=== PATIENT | female | born 1945 | race Caucasian/White ===

== ENCOUNTER 2016-12-09 14:48 | Inpatient (IN) | payer MEDICARE, OTHER ==
[2016-12-09] VITALS: BP 177/67
[~2016-12-09] VITALS: Ht 152.4 cm; Wt 90.9 kg
[2016-12-09 15:27] LABS: BASOPHILS 0.4 % (0.0-2.0); EOSINOPHILS 5.4 % (0-7); HEMATOCRIT 44.2 % (36.0-48.0); HEMOGLOBIN 14.5 g/dL (12-16); IMMATURE GRANULOCYTES 0.2 % (0-5); MCHC 32.8 g/dL (31.0-37.0); MCV 94.6 fL (80.0-100.0); MEAN PLATELET VOLUME 10.5 fL (7.4-10.4); MONOCYTES 8.1 % (2-11); NEUTROPHILS 59.9 % (40-80); RBC 4.67 10x6/uL (4.00-5.40); RDW 13.1 % (11.5-14.5); WBC 5.2 10x3/uL (4.8-10.8)
[2016-12-09 15:39] LABS: APPEARANCE CLEAR (CLEAR); BILIRUBIN NEGATIVE (NEGATIVE); COLOR YELLOW (YELLOW); GLUCOSE NEGATIVE (NEGATIVE); KETONE NEGATIVE (NEGATIVE); LEUKOCYTE ESTERASE NEGATIVE (NEGATIVE); NITRITE NEGATIVE (NEGATIVE); PROTEIN NEGATIVE (NEGATIVE); SPECIFIC GRAVITY 1.015 (1.005-1.020); UROBILINOGEN NORMAL (NORMAL)
[2016-12-09 16:00] LABS: PLATELET COUNT 311 10x3/uL (130-400)
[2016-12-09 16:14] LABS: ALBUMIN 3.4 g/dL (3.4-5.0); ANION GAP 13.6 mmol/L (8-16); BILIRUBIN - TOTAL 0.31 mg/dL (0.2-1.3); CALCIUM 8.9 mg/dL (8.5-10.1); CARBON DIOXIDE 26.7 mmol/L (21.0-32.0); POTASSIUM - SERUM 4.3 mmol/L (3.5-5.1); PROTEIN - SERUM 6.7 g/dL (6.4-8.2)
--- NOTE | 2016-12-09 19:30 | NUR ---
RECIEVED TO ROOM 2225 VIA STRECHER FROM ER ACCOMPANIED PER MILY. ALERT ORIENTED X 3.SL TO LEFT HAND INTACT WIHTOUT REDNESS OR EDEMA NOTED.CHIEF COMPLAINT IS MIGRAINE. DENIES DISCOMFORT AT PRESENT.
[2016-12-09 20:00] VITALS: BP 145/67
[2016-12-09] MEDS ORDERED: TOPROL XL25 MG PO (22:41)
[2016-12-09] MEDS ORDERED: B-12 DOTS500 MCG PO (22:42)
[2016-12-09] MEDS ORDERED: ASPIRIN325 MG PO (22:45)
[2016-12-09] MEDS ORDERED: CO Q-1030 MG PO (22:52)
[2016-12-09] MEDS ORDERED: KRILL OIL 1,001 EAC1 PO (22:53)
[2016-12-09] MEDS ORDERED: ZESTORETIC 20/21 TAB (22:56)
[2016-12-09] MEDS ORDERED: OMEPRAZOLE20 M1 PO (22:56)
[2016-12-09] MEDS ORDERED: FEXOFENADINE HC60 MG PO (23:00)
[2016-12-09] MEDS ORDERED: ZOLOFT25 MG PO (23:01)
[2016-12-09] MEDS ORDERED: NIASPAN500 MG PO (23:02)
[2016-12-09] MEDS ORDERED: PROVENTIL/2.5 MG/3 M INH (23:03)
[2016-12-09] MEDS ORDERED: ZESTORETIC 20-1 EACH PO (23:09)
--- NOTE | 2016-12-10 02:00 | NUR ---
RESTING QUIETLY. NO COMPLAINTS.
[2016-12-10 04:00] VITALS: BP 169/89
[2016-12-10 04:24] VITALS: BP 177/84; Ht 152.4 cm; Wt 90.9 kg
[2016-12-10] MEDS ORDERED: ACETAMINOPHEN325 MG PO (05:11)
--- NOTE | 2016-12-10 05:14 | NUR ---
TYLENOL GIVEN PER REQUEST FOR HEADACHE..FAMILY AT BEDSIDE.
--- NOTE | 2016-12-10 07:45 | NUR ---
REQUEST BROTH TO DRINK, STATED "SHE DOESN'T WANT ANYTHING SOLID, SHE WAS UP ALL NIGHT HAVING BOWEL MOVEMENTS", BROTH GIVEN, EXPLAINED TO HER THAT SHE NEEDS TO ATTEMPT TO EAT SOME SOLID FOOD, BED LOWEST POSITION, CALL LIGHT IN REACH, WILL CONTINUE TO MONITOR
[2016-12-10 07:57] VITALS: BP 188/102
--- NOTE | 2016-12-10 08:19 | HP ---
PATIENT: ROEL LA MEDICAL RECORD: [id number] ACCOUNT: [id number] LOCATION:[id number] : 43 ADMISSION DATE: 12/09/16 HISTORY AND PHYSICAL EXAMINATION DATE OF ADMISSION: 12/09/2016 CHIEF COMPLAINT: Weak, slurred speech. HISTORY OF PRESENT ILLNESS: This 71-year-old female followed by [facility] primary care physician, was brought into the Emergency Department today for being off balance, weak, and had slurred speech. She also had headache. Denies any vision changes. Weakness was not to one side or the other. Her symptoms had pretty much resolved before she got to the ER, there her vital signs were stable. CT of the head showed no acute abnormality. She is admitted for workup for TIA. PAST MEDICAL HISTORY: Hypertension, hyperlipidemia, reflux, coronary artery disease, allergies, sleep apnea on CPAP. She states she has had a history of hemiplegia, migraine headaches. PAST SURGICAL HISTORY: Hysterectomy, coronary artery bypass grafting. ALLERGIES: INTOLERANT TO STATINS. HOME MEDICATIONS: B12 sublingually daily, aspirin 325 mg daily, CoQ10 daily, Krill oil uncertain dose daily, Ventolin inhaler 2 puffs q.4-6 hours p.r.n. wheeze, Prilosec 20 mg a day, Zestoretic 20/25 once a day, Tami 10 mg once a day, Zoloft 25 mg once a day, Toprol-XL 50 once a day. HABITS: Former smoker, no alcohol or drugs. SOCIAL HISTORY: She is , retired. FAMILY HISTORY: History of heart disease. REVIEW OF SYSTEMS: GENERAL: No major weight changes. HEENT: No particular sinus or allergy problems. RESPIRATORY: No history of asthma or emphysema, but she is a long time smoker. CARDIAC: History of coronary artery disease with bypass surgery in the past, stable. GASTROINTESTINAL: Has reflux. GENITOURINARY: No significant problems there. MUSCULOSKELETAL: Has a few joint aches and pains. NEUROLOGIC: No seizures. She does have a history of migraine headaches. PSYCHIATRIC: Some depression. PHYSICAL EXAMINATION: VITAL SIGNS: She is awake and alert. She is afebrile, heart rate 74, blood pressure 139/78. HEENT: Grossly within normal limits. NECK: Supple. No JVD or bruit. HEART: Regular rate and rhythm without murmur. LUNGS: Clear. HISTORY AND PHYSICAL [id number] ROEL LA ABDOMEN: Obese, soft, flat, nontender. EXTREMITIES: No edema. NEUROLOGICAL: Cranial nerves are intact at this time. Protective Signal Superintendent strength is symmetric bilaterally at 5/5. There is no drift when she raises her arms. LABORATORY DATA: CBC is normal. INR is normal. Basic metabolic panel is normal. Liver functions are normal. Urinalysis is normal. Chest x-ray shows no acute process. CT of the head shows no acute process. ASSESSMENT: Transient ischemic attack, possibly migraine. PLAN: Telemetry, Lovenox, carotid Doppler ultrasound and check lipid profile. Other tests and procedures as warranted. TRANSINT:[id number] Voice Confirmation ID: [id number] DOCUMENT ID: [id number] CLAIR SHI MD at 0819 CC: [id number] DICTATION DATE: 12/10/16 0057 DIRECTOR AND PROFESSOR: 12/10/16 0134 ADM IN [facility] [address] [id number]
--- NOTE | 2016-12-10 08:30 | NUR ---
PT HERE FOR CARDIAC ISSUES, WITH CONSULTS TO CARDIOLOGY AT THIS TIME SRX2 BED IN LOWEST SETTING CALL LIGHT WITHIN REACH WILL CONTINUE TO MONITOR
--- NOTE | 2016-12-10 11:30 | NUR ---
MAXALT NOT HELPING WITH MIGRAINE
[2016-12-10 12:20] VITALS: BP 195/75
--- NOTE | 2016-12-10 15:00 | NUR ---
TELEMETRY CALLED TO INFORM US THAT SHE WAS BRADYING DOWN, HEART RATE HAS STAYED IN THE 90S AND SHE STARTED TO FLORI DOWN TO THE 40S. UPON CHEKCING EKG AND CARDIAC ENZYMES WERE ORDERED, THEN TOWN MANAGER CONSULTED
--- NOTE | 2016-12-10 15:49 | NUR ---
DR. RODGERS AT BEDSIDE ASSESSING PATIENT DUE TO ABNORMAL EKG. ORDERS RECEIVED TO CALL IF CARDIAC ENZYMES ELEVATED.HE STATED HE DOES NOT THINK PATIENT IS HAVING AN ACUTE GA.
[2016-12-10 16:14] VITALS: BP 148/51
[2016-12-10 16:17] LABS: CKMB 0.7 U/L (0.0-3.6); CREATINE KINASE 29 UL (21-215)
--- NOTE | 2016-12-10 16:17 | NUR ---
Patient Name: ROEL LA Admission Status: ER Accout number: [id number] Admission Date: 12-09-2016 : 1945 Admission Diagnosis: Attending: JUNIOR Current LOS: 1 Anticipated DC Date: 12-12-2016 Planned Disposition: Home Primary Insurance: MEDICARE A & B Discharge Planning Comments: CM MET WITH PATIENT AND SPOUSE (NIKIA) REGARDING D/C NEEDS AND PLANS. PATIENT STATED HER SPOUSE WILL DRIVE HER HOME AT DISCHARGE AND THEY HAVE A RAMP TO ENTER THEIR HOME AND NO STAIRS INSIDE. PATIENT STATED SHE IS INDEPENDENT WITH HER CARE AND HAS A WALKER, BS COMMODE, WHEELCHAIR, SHOWER CHAIR, AND NEBULIZER AT HOME. PATIENTS PCP IS DR. DE LA TORRE AND PHARMACY IS [facility] IN [place]. PATIENT STATED SHE HAS NOT HAD HOME HEALTH AND DOES NOT THINK SHE WILL NEED IT BUT WANTS TO WAIT AND SEE WHAT DOCTOR ORDERS. CM WILL CONTINUE TO FOLLOW PATIENT WITH D/C NEEDS AND PLANS. PCP DR. BRITT WOLFF IN [place]- [phone] NIKIA LA (SPOUSE) [phone] Sample Room Supervisor: Dania Rivers Is the patient Alert and Oriented? Yes 0 * How many steps to enter\exit or inside your home? RAMP 0 * PCP DR. DE LA TORRE 0 * Pharmacy [facility] IN [place] 0 * Preadmission Environment Home with Family 0 * ADLs Independent 0 * Equipment Bedside Commode Nebulizer Shower Chair Walker Wheelchair 0 * List name and contact numbers for known caregivers / representatives who currently or will assist patient after discharge: NIKIA LA (SPOUSE) [phone] 0 * Community resources currently utilized None 0 * Additional services required to return to the preadmission environment? Yes 0 * Can the patient safely return to the preadmission environment? Yes 0 * Has this patient been hospitalized within the prior 30 days at any hospital? No 0 Grand Total: 0
[2016-12-10 16:19] LABS: TROPONIN-I < 0.017 ng/mL (0.000-0.060)
--- NOTE | 2016-12-10 19:30 | NUR ---
PT RECEIVED RESTING IN BED WITH EYES CLOSED. ASSESSMENT COMPLETED, SEE SHIFT ASSESSMENT. NO COMPLAINTS OR NEEDS VOICED AT THIS TIME. CALL LIGHT AND H2O IN PT REACH.
[2016-12-10 20:00] VITALS: BP 126/59
--- NOTE | 2016-12-10 21:30 | NUR ---
PT RESTING IN BED WITH EYES CLOSED. NO S/S OF DISTRESS NOTED. RESP EVEN AND UNLABORED. NO COMPLAINTS OR NEEDS VOICED AT THIS TIME. CALL LIGHT AND H2O IN PT REACH.
--- NOTE | 2016-12-10 23:30 | NUR ---
PT RESTING IN BED WITH EYES CLOSED. NO S/S OF DISTRESS NOTED. CALL LIGHT AND H2O IN PT REACH.
[2016-12-11] VITALS (17 sets, daily range): BP systolic 80–180; BP diastolic 40–110
--- NOTE | 2016-12-11 04:05 | NUR ---
RN NOTE: PT LYING IN SUPINE POSITION WITH EYES CLOSED AND EASY RESPIRATIONS. IV IN LEFT HAND SALINE LOCKED. O2 IN USE VIA NC AT 2L. IS AT BEDSIDE. SIDE RAILS UP X2 FOR SAFETY.
[2016-12-11] MEDS ORDERED: TOPROL XL50 MG PO (08:59)
[2016-12-11] MEDS ORDERED: HYDROCODONE-APA1 TAB PO (09:00)
--- NOTE | 2016-12-11 09:13 | NUR ---
CM REASSESSMENT NOTE: PATIENT IS DISCHARGING HOME TODAY - DRIVING HER. PATIENT STATED SHE DID NOT NEED HOME HEALTH AND DID NOT HAVE ANY OTHER NEEDS FOR DISCHARGE.
--- NOTE | 2016-12-11 09:48 | NUR ---
PT WAS GETTING READY TO TAKE A SHOWER, WATER LEAKED FROM SHOWER TO HER BED, SHE SLIPPED IN THE WATER, DENIES PAIN, NO RED SPOTS NOTED, VITALS 115/54 P-56, DR SHI'S NURSE NOTIFIED, WILL WAIT FOR FURTHER INSTRUCTIONS
--- NOTE | 2016-12-11 09:50 | NUR ---
CALLED IN PATIENT'S ROOM BY NURSE REGARDING HYPOTENSION. BEDSIDE NURSE REPORTS THAT PATIENT JUST FELL-NOW WITH AMS, HYPOTENSION BP CURRENTLY ,80/40 P- 45, O2 SAT 97 PERCENT ON RA, TEMP 97.9, RESP 20. PATIENT IS AWAKE , DISORIENTED TO NAME, , AND SITUATION, NOT FOLLOWING COMMANDS BUT IS MOVING ALL 4 EXTREMITIES. IT WAS THOUGHT THAT PATIENT MAY HAVE SLIPPED AND FELL BUT STATES THAT HE WAS HELPING PATIENT TO THE SHOWER AND SHE STARTED C/O DIZZINESS THEN FELL. JORGE L COVARRUBIAS PRIMARY NURSE REPORTS TO ME THAT SHE AND KHALIDA ERIC ASSISTED PATIENT BACK TO BED POST FALL AND HER GAIT WAS STEADY AND SHE WAS TALKING TO THEM AT THAT TIME. INITIALLY HER BP WAS 117/60, PULSE WAS 50 UPON RETURNING TO BED PER JORGE L. RAPID RESPONSE CALLED. EKG OBTAINED WHICH SHOWED ST ELEVATION, POSSIBLE ACUTE WA. DR. SHI AND DR. HERNÁNDEZ NOTIFIED PER ISH DELUNA RAPID RESPOSE NURSE. WHEN SHE GOT BACK TO BED. THE FALL WAS APPROZ 5 MIN AGO. TO BED. NO BP
--- NOTE | 2016-12-11 10:20 | NUR ---
DR SHI CALLED ABOUT RAPID RESPONSE. INSTRUCT TO CALL [facility]. DR LEIGH CALLED EK FAXED TO [facility]. NEW ORDERS OBTAINED.
--- NOTE | 2016-12-11 10:22 | NUR ---
CM REASSESSMENT NOTE: PATIENT IS NOT DISCHARGING TODAY
[2016-12-11 11:06] LABS: CKMB 0.5 U/L (0.0-3.6); CREATINE KINASE 28 UL (21-215); TROPONIN-I < 0.017 ng/mL (0.000-0.060)
--- NOTE | 2016-12-11 12:15 | NUR ---
PT ARRIVED TO UNIT AT THIS TIME. NO ACUTE DISTRESS NOTED. ARRIVED VIA BED ACCOMPANIED BY HOSPITAL STAFF. WILL CONTINUE PLAN OF CARE.
--- NOTE | 2016-12-11 12:25 | NUR ---
RECIEVED REPORT FROM ADITYA ON PT AT THIS TIME. ALSO AT THIS TIME NOTED NURSE FROM FLOOR CALLED DR RUBY FOR CONSULT. WILL CONTINUE PLAN OF CARE.
--- NOTE | 2016-12-11 14:07 | NUR ---
FAMILY AT BEDSIDE. UPDATE GIVEN. NO ACUTE DISTRESS NOTED. PT STATED SHE NEEDED TO URINATE, BEDPAN PROVIDED, NOTED PT DID NOT URINATE. NO ACUTE DISTRESS NOTED. WILL CONTINUE PLAN OF CARE.
--- NOTE | 2016-12-11 14:21 | NUR ---
NOTED PT COMPLAINT OF HEADACHE AND NAUSEA. PRN EVP [employer] FOR NAUSEA. NOTED PT DOES NOT HAVE ANYTHING ORDERED FOR DISCOMFORT. CALLED DR SHI, NOTED NEW ORDER FOR ONE TIME DOSE OF NORCO [address]. WILL PLACE ORDER.
[2016-12-11 17:59] LABS: CKMB 0.7 U/L (0.0-3.6); CREATINE KINASE 39 UL (21-215)
[2016-12-11 18:05] LABS: TROPONIN-I < 0.017 ng/mL (0.000-0.060)
--- NOTE | 2016-12-11 18:23 | NUR ---
RESTING IN BED AT THIS TIME. NO ACUTE DISTRESS NOTED. RESPIRATIONS AT STEADY AND UNLABORED RATE. AWAKENS EASILY WHEN STAFF STATES PT NAME. WILL CONTINUE PLAN OF CARE.
--- NOTE | 2016-12-11 19:20 | NUR ---
Assessment complete. See flowsheet. Pt awake and oriented to person and place only. Pt BP cuff, SPO2 monitor off and replaced. pt pulled up in bed. Pt follows commands but continues to remove equipment. O2 placed back on @ 2L NC. SPO2 98%. Lung sounds present crackles to all holt. Pt encouraged to deep breathe and cough with no sputum produced and weak cough. HR SR with S1S2 auscultated. All peripheral pulses +2 with capillary refill <3 seconds. Left forearm 20g PIV site CDI saline locked no s/s infection or infiltration. BS present to all quadrants. Pt denies pain at this time. CPOC.
--- NOTE | 2016-12-11 21:20 | NUR ---
Zofran given for nausea. See MAR. Pt incontinent of large amt urine. Bed bath with gown and linen changes completed. Skin barrier cream applied to right upper inner buttox excoriated sore approx 1cm in diameter and redenned left inner midbuttox reddened area.
--- NOTE | 2016-12-11 23:20 | NUR ---
Reassessment complete. See flowsheet. Pt awake with EKG completed per order reading Normal sinus rhythm. Pt remains confused and attempting to remove equipment and get OOB. Pt oriented to person and place only and very uncooperative. O2 @ 2L NC. Lung sounds currently clear to auscultation. HR SR with S1S2 auscultated. All peripheral pulses +2 with capillary refill <3 seconds. PIV site remains CDI saline locked. BS +. Pt repositioned to back with HOB elevated to 40 degrees. Arms bridged. No other changes to note. Bed alarm on and close monitoring in progress. CPOC.
[2016-12-12] VITALS (13 sets, daily range): BP systolic 81–143; BP diastolic 47–77
--- NOTE | 2016-12-12 | NUR ---
Pt nausea persistent. Dr. Shaffer contacted with order for Phenergan 25mg PO Q6hr prn nausea received. See OCT.
[2016-12-12 00:50] LABS: CKMB 0.6 U/L (0.0-3.6); CREATINE KINASE 39 UL (21-215); TROPONIN-I < 0.017 ng/mL (0.000-0.060)
--- NOTE | 2016-12-12 01:20 | NUR ---
Adame catheter placed for incontinence and skin breakdown with 600cc clear, yellow urine retrieved. Pt relieved with no s/s anxiety at this time. Pt denies nausea. VSS. Daughter remains at bedside.
--- NOTE | 2016-12-12 03:20 | NUR ---
Reassessment complete. See flowsheet. Pt awakens to verbal stimulation with VSS> Pt cooperative at this time and oriented to person and place. O2 @ 2L NC. Respirations unlabored and shallow. Lung sounds currently clear to all holt with diminished lower lobes. HR SR with S1S2 auscultated. All peripheral pulses remain +2 with capillary refill <3 seconds. PIV site CDI; saline locked. BS +. Adame secure retrieving clear/yellow urine. Pt self positioned for comfort and resting with daughte at bedside. No s/s pain or distress. NO other changes to note. CPOC.
--- NOTE | 2016-12-12 05:20 | NUR ---
Pt resting quietly with daughter at bedside. NO s/s pain or distress. CPOC.
--- NOTE | 2016-12-12 13:08 | NUR ---
PATIENT SLEEPY DOES WAKE UP WITH STIMULATION, REFUSED BREAKFAST AND LUNCH. DAUGHTER AND HERE. NEEDS REORIENTATION WHEN AWAKE. SALINE LOCK LEFT FOREARM, FLUSHES WITHOUT DIFFICULTY. DUBOIS CATH PATENT AN DRAINING CLEAR YELLOW URINE. SKIN WARM AN DRY. ABD LARGE WITH HYPOACTIVE BOWEL SOUNDS. GOOD COUGH. LUNGS CLEAR BILATERALLY. MONITOR SR
--- NOTE | 2016-12-12 17:36 | NUR ---
REXCEIVED PT FROM ICU VIA WALKING WITH ICU STAFF. NO CO PAIN AT THIS TIME. SAMMY COMPLETE. SR......
--- NOTE | 2016-12-12 17:40 | NUR ---
REPORT CALLED TO Volodymyr. PATIENT MOVED PER BED TO ROOM 2108. PATIENT AMBULATED TO BED, WITH GREAT DIFFICULTY. STATES HER LEG HURTS TO WALK ON IT. NEEDED ASSISTANCES OF 2 TO WALK.
--- NOTE | 2016-12-12 19:10 | NUR ---
AWAKE/ALERT DENIES PAIN OR ANY NEEDS. IV IN L FA INTACT SL. TELEMETRY SHOWS 61 ON MONITOR. 02 AT 2L/NC, RR 18 EVEN U/L. DUBOIS INTACT/PATENT WITH LT YELLOW URINE DRAINING TO GRAVITY. ORIENTED TO CALL FOR ANY NEEDS OR DISCOMFORT.
--- NOTE | 2016-12-12 20:55 | NUR ---
ADMIN SCHED MEDS WITH SIPS OF WATER SWALLOWING WITHOUT DIFFICULTY. REQUESTED ASSISTANCE TO BR AND HAD A LARGE BM.
[2016-12-13 00:30] VITALS: BP 135/82
--- NOTE | 2016-12-13 02:56 | NUR ---
RESTING QUIETLY WITH EYES CLOSED. RR 16 EVEN U/L. HER SON IS STAYING IN THE ROOM. NO QUESTIONS OR CONCERNS VOICED.
[2016-12-13 04:30] VITALS: BP 144/71
[2016-12-13 05:10] LABS: BASOPHILS 0.7 % (0.0-2.0); EOSINOPHILS 2.6 % (0-7); HEMATOCRIT 43.7 % (36.0-48.0); IMMATURE GRANULOCYTES 0.2 % (0-5); LYMPHOCYTES 32.8 % (15-50); MCH 30.8 pg (26.0-34.0); MEAN PLATELET VOLUME 11.1 fL (7.4-10.4); MONOCYTES 9.1 % (2-11); NEUTROPHILS 54.6 % (40-80); PLATELET COUNT 271 10x3/uL (130-400); RBC 4.55 10x6/uL (4.00-5.40); RDW 13.1 % (11.5-14.5); WBC 5.7 10x3/uL (4.8-10.8)
[2016-12-13 05:39] LABS: ANION GAP 8.8 mmol/L (8-16); CALCIUM 8.7 mg/dL (8.5-10.1); CARBON DIOXIDE 31.1 mmol/L (21.0-32.0); CREATININE - SERUM 1.1 mg/dL (0.6-1.3); POTASSIUM - SERUM 3.9 mmol/L (3.5-5.1)
--- NOTE | 2016-12-13 07:05 | NUR ---
RECEIVED REPORT. ASSUMED CARE OF PATIENT. RESTING WITH EYES CLOSED, EASILY AROUSED. RESP EVEN AND UNLABORED. DENIES NEEDS. FAMILY AT BEDSIDE. CALL LIGHT WITHIN REACH. NO DISTRESS.
[2016-12-13 08:12] VITALS: BP 155/67
[2016-12-13 11:52] VITALS: BP 153/74
--- NOTE | 2016-12-13 14:30 | NUR ---
ASSISTED PATIENT OOB TO BEDSIDE COMMODE. PATIENT ONLY ABLE TO BEAR ABOUT 25% OF HER WEIGHT ON LEFT FOOT. PATIENT STATES THAT WHEN SHE FELL BEFORE BEING ADMITTED TO ICU LAST WEEK, SHE MUST HAVE TWISTED IT. NO BRUISING, EXTREMITY IS EDEMATOUS. ASSISTED BACK TO BED AND ELEVATED FOOT. NO DISTRESS. CALL LIGHT WITHIN REACH.
[2016-12-13 15:13] VITALS: BP 153/71
[2016-12-13 20:00] VITALS: BP 159/69
--- NOTE | 2016-12-13 22:50 | NUR ---
RESTING IN BED WITH EYES CLOSED. NO SIGNS OF DISTRESS. BED ALARM IS ON. CALL LIGHT IN REACH
[2016-12-14] VITALS: BP 143/691
--- NOTE | 2016-12-14 02:18 | NUR ---
RESTING IN BED WITH EYES CLOSED. NO SIGNS OF DISTRESS. BED ALARM ON. CALL LIGHT IN REACH.
[2016-12-14 04:00] VITALS: BP 168/72
--- NOTE | 2016-12-14 07:22 | NUR ---
PT SITTING UP IN BED SLEEPING NO S/S DISTRESS NOTED WILL CONT TO MONITOR
[2016-12-14 08:43] VITALS: BP 127/70
--- NOTE | 2016-12-14 11:52 | NUR ---
PT CO LEFT ANKLE PAIN WHEN SHE AMBULATES, CALLED DR SHI'S OFFICE TO ORDER ANKLE XR. ORDERED.
--- NOTE | 2016-12-14 12:34 | NUR ---
PT DAUGHTER CALLED TO CHECK ON STATUS ON HER MOTHER. SHE WAS CONCERNED ABOUT LEFT ANKLE PAIN. I LET HER KNOW THAT WE HAVE ALREADY ORDERED ANKLE XR TO RULE OUT FX. SHE ALSO ASKED ABOUT HER MOTHER BEING DC TO REHAB AT [facility] WHERE HER SISTER IN LAW WORKS. WILL ASK DR SHI ABOUT REHAB.
[2016-12-14 13:14] VITALS: BP 166/74
--- NOTE | 2016-12-14 14:14 | NUR ---
TALKED WITH DR SHI HE IS OK WITH PT TO HAVE SPLINT AND DC ON REHAB. CALLED [employer] TO GET SPLINT FOR PT ANKLE SPOKE WITH ISAÍAS
--- NOTE | 2016-12-14 15:03 | NUR ---
Patient Name: ROEL LA Encounter No: [id number] : 1945 Primary Insurance: MEDICARE A & B Anticipated DC Date: 12-14-2016 Planned Disposition: [facility] FACILITY External Planned Provider: : [facility] follow-up note: CM RECEIVED CALL FROM BHUMI OF [facility], , WHO REPORTED THAT FAMILY HAS ASKED THAT CM FAX INFORMATION TO THE FACILITY FOR REHAB ADMISSION AT DISCHARGE. CM SPOKE TO PT AND SPOUSE IN ROOM, DISCUSSED REQUEST FROM [facility]. PT REPORTS SHE HAS FAMILY THAT WORKS AT THE FACILITY AND SHE WOULD LIKE REFERRAL SENT. PT'S SPOUSE REPORTS PT IS READY TO DISCHARGE TODAY. CHOICE SIGNED, IMPORTANT MESSAGE FROM MEDICARE PROVIDED AND DISCUSSED. PT'S SPOUSE REQUESTED VAN MANAGER CARE. KIKI SPOKE TO DR. SHI WHO IS DISCHARGING PT TODAY FOR ADMISSION INTO REHAB AT [facility] WHEN BED IS AVAILABLE. KIKI SPOKE TO BHUMI WHO ARRIVED AT HOSPITAL TO MEET WITH PT AND SPOUSE IN ROOM. CM FAXED REFERRAL TO [facility], . KIKI WAITING ADMISSION DETERMINATION FROM [facility]. Sanya Miner, CASE MANAGEMENT
--- NOTE | 2016-12-14 16:09 | NUR ---
REMOVED PT DUBOIS CATH. REMOVED 10 CC STERILE FLUID FROM BALLOON AND REMOVED DUBOIS CATH. PT TOLD TO LET STAFF KNOW WHEN SHE URINATES. STILL WAITING ON DC PAPERWORK. DC TELE PER PT REQUEST
--- NOTE | 2016-12-14 16:53 | NUR ---
APPLIED PT AIR SPLINT TO LEFT ANKLE. FAMILY ANXIOUSLY WAITING FOR DC PAPERWORK. STILL WAITING ON PT TO BE ACCEPTED TO [facility]
--- NOTE | 2016-12-14 17:09 | NUR ---
Patient Name: ROEL LA Encounter No: [id number] : 1945 Primary Insurance: MEDICARE A & B Anticipated DC Date: 12-14-2016 Planned Disposition: [facility] External Planned Provider: [facility], MEDICARE REHAB BED DCP follow-up note: CM RECEIVED CALL FROM MICHAEL OF [facility], , WHO REPORTED THAT [facility] WILL ACCEPT PT TODAY. CM SPOKE TO PT'S FAMILY WHO WORK FOR THE FACILITY AND WILL BE TRANSPORTING TODAY. NURSE REPORT TO BE CALLED TO [facility], . Sanya Miner, CASE MANAGEMENT
--- NOTE | 2016-12-14 17:24 | NUR ---
PT WITH NO PIV AND NO
--- NOTE | 2016-12-14 17:28 | NUR ---
CALLED REPORT TO YESENIA AT [facility]. WENT OVER DC PAPERWORK WITH PT PT VERBALIZES UNDERSTANDING. PT FAMILY WHEELED HER OUT VIA WHEELSpecialized Vascular TechnologiesAR
== END 2016-12-14 17:34 | DRG 103 ==
LOC: D.ER 14:48 → D.MS 18:10 → OBSVTIME 18:10 → D.MS 18:10 → D.M2 12-11 10:23 → D.ICU 12-11 10:23 → D.M2 12-12 17:34
PROVIDERS: Family Medicine; Nurse Practitioner Family; ADMIT Family Medicine
DX: G43.109 Migraine with aura, not intractable, without status migrainosus (principal); I10 Essential (primary) hypertension; E78.5 Hyperlipidemia, unspecified; R53.1 Weakness; M25.572 Pain in left ankle and joints of left foot; I25.10 Atherosclerotic heart disease of native coronary artery without angina pectoris; G47.30 Sleep apnea, unspecified; E66.9 Obesity, unspecified; K21.9 Gastro-esophageal reflux disease without esophagitis; Z86.73 Personal history of transient ischemic attack (TIA), and cerebral infarction without residual deficits; Z95.1 Presence of aortocoronary bypass graft; Z68.39 Body mass index [BMI] 39.0-39.9, adult; Z72.0 Tobacco use

== ENCOUNTER 2019-02-19 21:55 | Emergency (ER) | payer MEDICARE, OTHER ==
[~2019-02-19] VITALS: Ht 152.4 cm; Wt 90.7 kg
[~2019-02-19 21:55] MED LIST: ACETAMINOPHEN325 MG PO; ASPIRIN325 MG PO; B-12 DOTS500 MCG PO; CO Q-1030 MG PO; FEXOFENADINE HC60 MG PO; HYDROCODONE-APA1 TAB PO; KRILL OIL 1,001 EAC1 PO; NIASPAN500 MG PO; OMEPRAZOLE20 M1 PO; PROVENTIL/2.5 MG/3 M INH; TOPROL XL25 MG PO; TOPROL XL50 MG PO; ZESTORETIC 20-1 EACH PO; ZESTORETIC 20/21 TAB; ZOLOFT25 MG PO
[2019-02-19 21:59] VITALS: Ht 152.4 cm; Wt 90.7 kg
[2019-02-19 23:12] VITALS: BP 196/96
== END 2019-02-19 23:10 | disposition home or self-care (01) ==
LOC: D.ER 21:55
DX: G43.909 Migraine, unspecified, not intractable, without status migrainosus (principal); Z86.73 Personal history of transient ischemic attack (TIA), and cerebral infarction without residual deficits